=== PATIENT | female | born 1975 | race Caucasian/White ===

== ENCOUNTER 2018-06-02 19:59 | Emergency (ER) | payer BC ==
[2018-06-02 20:08] VITALS: RESP 18; TEMP 98; O2SAT 100
[2018-06-02] MEDS ORDERED: DiphenhydrAMINE 50 mg/ml Inj IVP ONE (20:08)
[2018-06-02] MEDS ORDERED: DiphenhydrAMINE 50 mg/ml Inj ONE (20:11)
--- NOTE | 2018-06-02 22:16 | ED PDOC ---
Arrival/HPI - General Chief Complaint: Allergic Reaction Time Seen by Provider: 06/02/18 20:01 Historian: Patient - History of Present Illness Narrative History of Present Illness (Text): 06/02/18 20:05 42 year old female, whose past medical history includes hypothyroidism, presents to the emergency department complaining of allergic reaction following ingestion of seafood at a restaurant. Patient states soon after eating a combination of fish and shrimp, she began to feel "funny" and a fullness to the back of her throat. Patient states she became nervous and though she was going to pass out. Patient took 25mg of Benadryl which was given to her and felt better. Patient denies any fevers, chills, shortness of breath, chest pain, abdominal pain, urinary symptoms, back pain, neck pain, rash headache, dizziness, or any other complaints PMD: Dr. Mccarty Symptom Onset: Gradual Symptom Course: Improving Activities at Onset: Eating Context: Other (resturant) Past Medical History - Provider Review Nursing Documentation Reviewed: Yes - Endocrine/Metabolic Hx Endocrine Disorders: Yes Hx Hypothyroidism: Yes - Psychiatric Hx Substance Use: No Family/Social History - Physician Review Nursing Documentation Reviewed: Yes Family/Social History: No Known Family HX Smoking Status: Never Smoked Hx Alcohol Use: No Hx Substance Use: No Allergies/Home Meds Allergies/Adverse Reactions: Allergies shellfish derived Adverse Reaction (Verified 06/02/18 20:03) DIARRHEA Home Medications: Home Meds Medication Instructions Recorded Confirmed Levothyroxine [Synthroid] 50 mcg PO DAILY 06/02/18 06/02/18 Review of Systems - Physician Review All systems were reviewed & negative as marked: Yes - Review of Systems Constitutional: absent: Fevers, Other (chills) ENT: Other (fullness back of throat) Respiratory: absent: SOB Cardiovascular: absent: Chest Pain Gastrointestinal: absent: Diarrhea, Nausea, Vomiting Genitourinary Female: absent: Dysuria, Frequency, Hematuria Musculoskeletal: absent: Back Pain, Neck Pain Skin: absent: Rash Neurological: absent: Headache, Dizziness Physical Exam Vital Signs Reviewed: Yes Vital Signs Temp Pulse Resp BP Pulse Ox 06/02/18 20:08 98.0 F 93 H 18 106/89 100 Temperature: Afebrile Blood Pressure: Normal Pulse: Regular Respiratory Rate: Normal Appearance: Positive for: Well-Appearing, Non-Toxic, Comfortable Pain Distress: None Mental Status: Positive for: Alert and Oriented X 3 - Systems Exam Head: Present: Atraumatic, Normocephalic Pupils: Present: PERRL Extroacular Muscles: Present: EOMI Conjunctiva: Present: Normal Mouth: Present: Moist Mucous Membranes Neck: Present: Normal Range of Motion. No: Other (no strider) Respiratory/Chest: Present: Clear to Auscultation, Good Air Exchange. No: Respiratory Distress, Accessory Muscle Use Cardiovascular: Present: Regular Rate and Rhythm, Normal S1, S2. No: Murmurs Abdomen: No: Tenderness, Distention, Peritoneal Signs Back: Present: Normal Inspection Upper Extremity: Present: Normal Inspection. No: Cyanosis, Edema Lower Extremity: Present: Normal Inspection. No: Edema Neurological: Present: GCS=15, CN II-XII Intact, Speech Normal Skin: Present: Warm, Dry, Normal Color. No: Rashes Psychiatric: Present: Alert, Oriented x 3, Normal Insight, Normal Concentration Medical Decision Making ED Course and Treatment: 06/02/18 20:10 Impression: 42 year old female presents complaining of allergic reaction following ingestion of seafood at a restaurant. Plan: -- Benadryl, Solu-medrol -- Reassess and disposition Progress Notes: - Medication Orders Current Medication Orders: Discontinued Medications Diphenhydramine HCl (Benadryl) 25 mg IVP ONCE ONE Stop: 06/02/18 20:09 Last Admin: 06/02/18 20:11 Dose: 25 mg IVP Administration Document 06/02/18 20:11 AD (Rec: 06/02/18 20:27 AD [id number]) Charges for Administration # of IVP Administrations 1 Methylprednisolone (Solu-Medrol) 125 mg IVP ONCE ONE Stop: 06/02/18 20:09 Last Admin: 06/02/18 20:11 Dose: 125 mg IVP Administration Document 06/02/18 20:11 AD (Rec: 06/02/18 20:27 AD [id number]) Charges for Administration # of IVP Administrations 1 - Scribe Statement The provider has reviewed the documentation as recorded by the Scribe Cele Ridley All medical record entries made by the Scribe were at my direction and personally dictated by me. I have reviewed the chart and agree that the record accurately reflects my personal performance of the history, physical exam, medical decision making, and the department course for this patient. I have also personally directed, reviewed, and agree with the discharge instructions and disposition. Disposition/Present on Arrival - Present on Arrival Any Indicators Present on Arrival: No History of DVT/PE: No History of Uncontrolled Diabetes: No Urinary Catheter: No History of Decub. Ulcer: No History Surgical Site Infection Following: None - Disposition Have Diagnosis and Disposition been Completed?: Yes Diagnosis: Allergic reaction, Food allergy Disposition: HOME/ ROUTINE Disposition Time: 22:28 Patient Plan: Discharge Condition: GOOD Additional Instructions: Take meds as prescribed/follow up with your doctor this week/Caution with exposure to fish/shrimp Prescriptions: DiphenhydrAMINE [Benadryl] 50 mg PO Q6 PRN #24 cap PRN Reason: Itching / Pruritus predniSONE [Prednisone] 40 mg PO DAILY #10 tab Referrals: Maycol Mccarty V [Primary Care Provider] - Follow up with primary Forms: [facility] (Tongan)
[2018-06-02 23:12] VITALS: BP 110/72; PULSE 85
== END 2018-06-02 22:30 | disposition home or self-care (01) ==
LOC: ED 19:59
DX: L27.2 Dermatitis due to ingested food (principal); E03.9 Hypothyroidism, unspecified
CPT/HCPCS: 96374; 96375; 99283; J1200; J2930